=== PATIENT | female | born 1965 | race Hispanic/Latino ===

== ENCOUNTER → 2024-03-11 | Day surgery (SDC) | payer OTHER ==
[~2024-03-11] MED LIST: CLOBETASOL PROP15 G1 TOP; CRESTOR40 MG PO; CYCLOSPORINE25 MG OU; FOLIC ACID0.4 MG PO; HYDROCORTISONE30 G2 TOP; LIDOCAINE HCL 2% LOCAL INJ 5 ML SDV VIAL INJ ONE; METFORMIN HCL500 MG PO; METHOTREXATE2.5 MG PO; MONTELUKAST SOD10 MG PO; OLMESARTAN-HCT1 EAC1 PO; PLAQUENIL200 MG PO; PROPOFOL IV EMULSION 10 MG/ML 20 ML VIAL ONE; QVAR REDIHALE10.6 GM INH; VITAMIN D250 MCG PO
[2024-03-11] MEDS: LACTATED RINGER'S 1,000 ML ONE (09:28)
[2024-03-11 12:20] VITALS: BP 133/68; PULSE 52; RESP 17; TEMP 97.1; O2SAT 98
== END | disposition home or self-care (01) ==
LOC: OR 08:08
PROVIDERS: ATTEND Internal Medicine Gastroenterology
DX: Z12.11 Encounter for screening for malignant neoplasm of colon (principal); D12.4 Benign neoplasm of descending colon; D12.5 Benign neoplasm of sigmoid colon; K57.30 Diverticulosis of large intestine without perforation or abscess without bleeding; K64.8 Other hemorrhoids; K21.9 Gastro-esophageal reflux disease without esophagitis; D64.9 Anemia, unspecified; E11.9 Type 2 diabetes mellitus without complications; I10 Essential (primary) hypertension; E78.5 Hyperlipidemia, unspecified; J45.909 Unspecified asthma, uncomplicated; L30.9 Dermatitis, unspecified; M06.9 Rheumatoid arthritis, unspecified; Z88.0 Allergy status to penicillin; Z91.012 Allergy to eggs; Z01.810 Encounter for preprocedural cardiovascular examination; Z79.84 Long term (current) use of oral hypoglycemic drugs; Z79.899 Other long term (current) drug therapy
CPT/HCPCS: 45385; 93005; J2001; J2704; J7121; 45378